=== PATIENT | female | born 1995 | race Caucasian/White ===

== ENCOUNTER 2017-03-22 19:13 | Emergency (ER) | payer BC ==
[~2017-03-22] VITALS: Ht 172.7 cm; Wt 85.6 kg
[2017-03-22 19:17] VITALS: Ht 172.7 cm; Wt 85.6 kg
[2017-03-22 20:10] VITALS: O2SAT 100
[2017-03-22] MEDS ORDERED: ONDANSETRON INJ 2 MG/ML 2 ML VIAL IV STA ×2 (20:18→23:14)
[2017-03-22] MEDS ORDERED: SODIUM CHLORIDE 0.9% 1000ML 1,000 ML IV STA (20:18)
[2017-03-22 20:28] LABS: BASO % 0.4 %; BASO ABS # 0.03 K/uL (0-0.2); EOS % 2.8 %; EOS ABS # 0.23 K/uL (0-0.5); HEMATOCRIT 45.3 % (37-47); HEMOGLOBIN 15.3 g/dL (12.0-16.0); IG# 0.01 K/uL (0.00-0.02); LYMPH ABS # 2.42 K/uL (1.2-3.4); MEAN CELL VOLUME 87.6 fL (80-100); MEAN CORPUSCULAR HEMOGLOBIN 29.6 pg (25-34); MEAN CORPUSCULAR HGB CONC 33.8 g/dl (32-36); MEAN PLATELET VOLUME 10.4 fL (7.4-10.4); MONO % 8.9 %; MONO ABS # 0.74 K/uL (0.11-0.59); NEUT % 58.8 %; NEUT ABS # 4.92 K/uL (1.4-6.5); PLATELET COUNT 236 K/uL (130-400); RED CELL DISTRIBUTION WIDTH CV 13.9 % (11.5-14.5); RED CELL DISTRIBUTION WIDTH SD 44.7 fL (36.4-46.3); WHITE BLOOD COUNT 8.35 K/uL (4.8-10.8)
[2017-03-22] MEDS ORDERED: HYDROmorphone INJ 0.5 MG/0.5 ML SYR IV PRN (20:30)
[2017-03-22] MEDS ORDERED: OPTIRAY 320 IV PRN (20:30)
[2017-03-22 20:44] LABS: ALBUMIN 4.5 gm/dl (3.4-5.0); CALCIUM 9.8 mg/dl (8.5-10.1); CREATININE 0.97 mg/dl (0.60-1.20); POTASSIUM 3.8 mmol/L (3.5-5.1)
[2017-03-22 20:47] LABS: TOTAL PROTEIN 7.8 gm/dl (6.4-8.2)
[2017-03-22] MEDS ORDERED: EFF75 PO (20:55)
[2017-03-22] MEDS ORDERED: LAMO150T PO (20:55)
[2017-03-22] MEDS ORDERED: SERT-234 PO (20:55)
--- NOTE | 2017-03-22 22:27 | DIAGNOSTIC IMAGING REPORT ---
ABDOMEN AND PELVIS CT WITH IV CONTRAST CT DOSE: 537.87 mGy.cm HISTORY: Right lower quadrant abdominal pain. TECHNIQUE: Multiaxial CT images of the abdomen and pelvis were performed following the use of intravenous contrast. A dose lowering technique was utilized adhering to the principles of ALARA. COMPARISON STUDY: None. FINDINGS: The lung bases are clear. No fractures within the visualized osseous structures. The liver, gallbladder, pancreas, adrenal glands, and kidneys are unremarkable. The spleen is mildly enlarged measuring 13 cm in length. No retroperitoneal lymphadenopathy. Bladder is not well-distended and therefore not well evaluated. The intrauterine device appears be in good position. Normal ovaries. The appendix is not clearly visualized. There are no inflammatory changes within the right lower quadrant. IMPRESSION: 1. No bowel wall thickening or obstruction. 2. Mild splenomegaly. 3. The appendix is not clearly visualized. There are no inflammatory changes seen within the right lower quadrant. However, if there is clinical concern for acute appendicitis then repeat CT with oral contrast is recommended for further evaluation. Electronically signed by: Gerardo Harrell M.D. 03/22/2017 10:26 PM Dictated Date/Time: 03/22/2017 10:17 PM
--- NOTE | 2017-03-23 01:01 | EMERGENCY ROOM VISIT NOTE ---
History Report prepared by Dodie: Magda Payne Under the Supervision of: Dr. Rashard Rees M.D. First contact with patient: 20:05 Chief Complaint: ABDOMINAL PAIN Stated Complaint: NAUSEA, LOWER RT ABD PAIN, LIGHT HEADED Nursing Triage Summary: low abd pain and n/v since last night History of Present Illness The patient is a 22 year old female who presents to the Emergency Room with complaints of constant RLQ abdominal pain beginning yesterday. The patient states that she has been having lower right abdominal pain since yesterday and she notes that she has never had this before. She reports that her pain is worsened with movement. She complains of nausea, vomiting, and lightheadedness. The patient states that she ate a normal dinner tonight that worsened her nausea. She states that she has an IUD and her last period was over 1 year ago. Pt denies LOC, headache, fevers, chills, diaphoresis, visual changes, neck pain , chest pain, breathing difficulties, back pain, melena, hematochezia, urinary symptoms, numbness, weakness, lymphadenopathy, rash, or other complaints. She rates her pain as a 7/10 in severity. Source of History: patient Onset: yesterday Position: abdomen (RLQ) Symptom Intensity: 7/10 Timing: constant Modifying Factors (Worsening): movement Associated Symptoms: + nausea, + vomiting Review of Systems See HPI for pertinent positives and negatives. A total of ten systems were reviewed and were otherwise negative. Past Medical & Surgical Medical Problems: (1) Depression Family History No pertinent family history stated. Social History Smoking Status: Current Some Day Smoker Marital Status: single Housing Status: lives with roommate Occupation Status: [employer] student Current/Historical Medications Scheduled Lamotrigine (Lamictal), 150 MG PO DAILY Sertraline (Zoloft), 100 MG PO DAILY Venlafaxine Hcl (Effexor), 75 MG PO DAILY Allergies Coded Allergies: No Known Allergies (Unverified , 03/22/17) Physical Exam Vital Signs Date Time Temp Pulse Resp B/P (MAP) Pulse Ox O2 Delivery O2 Flow Rate FiO2 03/22/17 23:50 74 18 130/74 99 Room Air 03/22/17 21:43 66 20 121/66 99 Room Air 03/22/17 20:51 60 18 138/98 100 Room Air 03/22/17 20:10 100 Room Air 03/22/17 19:17 36.4 55 18 159/67 100 Room Air Physical Exam GENERAL: Awake, alert, well-appearing, in no distress HENT: Normocephalic, atraumatic. Oropharynx unremarkable. EYES: Normal conjunctiva. Sclera non-icteric. NECK: Supple. No nuchal rigidity. FROM. No JVD. RESPIRATORY: Clear to auscultation. CARDIAC: Regular rate, normal rhythm. Extremities warm and well perfused. Pulses equal. ABDOMEN: Soft, non-distended. RLQ abdominal tenderness, mild guarding mild rebound. No masses. RECTAL: Deferred. MUSCULOSKELETAL: Chest examination reveals no tenderness. The back is symmetrical on inspection without obvious abnormality. Mild right flank tenderness. No joint edema. LOWER EXTREMITIES: Calves are equal size bilaterally and non-tender. No edema. No discoloration. NEURO: Normal sensorium. No sensory or motor deficits noted. SKIN: No rash or jaundice noted. Medical Decision & Procedures ER Provider Diagnostic Interpretation: Radiology results as stated below per my review and radiologist interpretation: ABDOMEN AND PELVIS CT WITH IV CONTRAST FINDINGS: The lung bases are clear. No fractures within the visualized osseous structures. The liver, gallbladder, pancreas, adrenal glands, and kidneys are unremarkable. The spleen is mildly enlarged measuring 13 cm in length. No retroperitoneal lymphadenopathy. Bladder is not well-distended and therefore not well evaluated. The intrauterine device appears be in good position. Normal ovaries. The appendix is not clearly visualized. There are no inflammatory changes within the right lower quadrant. IMPRESSION: 1. No bowel wall thickening or obstruction. 2. Mild splenomegaly. 3. The appendix is not clearly visualized. There are no inflammatory changes seen within the right lower quadrant. However, if there is clinical concern for acute appendicitis then repeat CT with oral contrast is recommended for further evaluation. Electronically signed by: Gerardo Harrell M.D. 03/22/2017 10:26 PM Dictated Date/Time: 03/22/2017 10:17 PM Laboratory Results 03/22/17 20:18 Red Blood Count 5.17, Mean Corpuscular Volume 87.6, Mean Corpuscular Hemoglobin 29.6, Mean Corpuscular Hemoglobin Concent 33.8, Mean Platelet Volume 10.4, Neutrophils (%) (Auto) 58.8, Lymphocytes (%) (Auto) 29.0, Monocytes (%) (Auto) 8.9, Eosinophils (%) (Auto) 2.8, Basophils (%) (Auto) 0.4, Neutrophils # (Auto) 4.92, Lymphocytes # (Auto) 2.42, Monocytes # (Auto) 0.74, Eosinophils # (Auto) 0.23, Basophils # (Auto) 0.03 03/22/17 20:18 Test 03/22/17 20:18 03/22/17 21:20 White Blood Count 8.35 K/uL (4.8-10.8) Red Blood Count 5.17 M/uL (4.2-5.4) Hemoglobin 15.3 g/dL (12.0-16.0) Hematocrit 45.3 % (37-47) Mean Corpuscular Volume 87.6 fL (80-100) Mean Corpuscular Hemoglobin 29.6 pg (25-34) Mean Corpuscular Hemoglobin Concent 33.8 g/dl (32-36) Platelet Count 236 K/uL (130-400) Mean Platelet Volume 10.4 fL (7.4-10.4) Neutrophils (%) (Auto) 58.8 % Lymphocytes (%) (Auto) 29.0 % Monocytes (%) (Auto) 8.9 % Eosinophils (%) (Auto) 2.8 % Basophils (%) (Auto) 0.4 % Neutrophils # (Auto) 4.92 K/uL (1.4-6.5) Lymphocytes # (Auto) 2.42 K/uL (1.2-3.4) Monocytes # (Auto) 0.74 K/uL (0.11-0.59) Eosinophils # (Auto) 0.23 K/uL (0-0.5) Basophils # (Auto) 0.03 K/uL (0-0.2) RDW Standard Deviation 44.7 fL (36.4-46.3) RDW Coefficient of Variation 13.9 % (11.5-14.5) Immature Granulocyte % (Auto) 0.1 % Immature Granulocyte # (Auto) 0.01 K/uL (0.00-0.02) Anion Gap 8.0 mmol/L (3-11) Est Creatinine Clear Calc Drug Dose 106.0 ml/min Estimated GFR () 97.4 Estimated GFR (Non- 84.1 BUN/Creatinine Ratio 10.9 (10-20) Calcium Level 9.8 mg/dl (8.5-10.1) Total Bilirubin 0.4 mg/dl (0.2-1) Direct Bilirubin 0.1 mg/dl (0-0.2) Aspartate Amino Transf (AST/SGOT) 25 U/L (15-37) Alanine Aminotransferase (ALT/SGPT) 42 U/L (12-78) Alkaline Phosphatase 53 U/L (45-117) Total Protein 7.8 gm/dl (6.4-8.2) Albumin 4.5 gm/dl (3.4-5.0) Lipase 196 U/L (73-393) Urine Color YELLOW Urine Appearance CLOUDY (CLEAR) Urine pH >= 9.0 (4.5-7.5) Urine Specific [place] 1.025 (1.000-1.030) Urine Protein NEG (NEG) Urine Glucose (UA) NEG (NEG) Urine Ketones TRACE (NEG) Urine Occult Blood NEG (NEG) Urine Nitrite NEG (NEG) Urine Bilirubin NEG (NEG) Urine Urobilinogen NEG (NEG) Urine Leukocyte Esterase NEG (NEG) Urine WBC (Auto) 1-5 /hpf (0-5) Urine RBC (Auto) 5-10 /hpf (0-4) Urine Hyaline Casts (Auto) 1-5 /lpf (0-5) Urine Epithelial Cells (Auto) >30 /lpf (0-5) Urine Bacteria (Auto) 2+ (NEG) Urine Test NEG (NEG) Laboratory results reviewed by me Medications Administered Medications (Trade) Dose Ordered Sig/Antonio Route Start Time Stop Time Status Last Admin Dose Admin Sodium Chloride 1,000 ml @ 999 mls/hr Q1H1M STAT IV 03/22/17 20:18 03/22/17 21:18 DC 03/22/17 20:46 999 MLS/HR Hydromorphone HCl (Dilaudid Inj) 0.5 mg Q15M PRN IV 03/22/17 20:30 04/05/17 20:29 03/22/17 20:46 0.5 MG Ondansetron HCl (Zofran Inj) 4 mg NOW STAT IV 03/22/17 20:18 03/22/17 20:20 DC 03/22/17 20:46 4 MG Ondansetron HCl (Zofran Inj) 4 mg NOW STAT IV 03/22/17 23:14 03/22/17 23:15 DC 03/22/17 23:57 4 MG ED Course 2004: The patient was evaluated in room A12. A complete history and physical exam was performed. 2018: Zofran Inj 4mg IV, Sodium Chloride 1000 ml @ 999 mls/hr IV. 2029: Dilaudid Inj 0.5mg PRN IV pain. 2314: Zofran Inj 4mg IV. 2328: Improved RLQ symptoms but moderate tenderness in the RUQ. 0120: Patient reevaluated after ultrasound imaging. She is feeling much better. Pain improved. Ultrasound imaging negative. Conservative management with precautions given regarding appendix and other pathology. Comfortable. Return instructions outlined. Patient discharged in stable condition. Discussed follow-up within 12-24 hours. Medical Decision Triage Nursing notes reviewed and agree them. The patient's history was concerning for abdominal pain. Differential diagnosis: Etiologies such as appendicitis, biliary pathology, viral syndrome, diverticulitis, PUD, UTI, pancreatitis, obstruction, mesenteric ischemia, aortic pathology, infections, inflammatory bowel disease, renal colic, ectopic , ovarian pathology, as well as others were entertained. Physical examination findings: As above. ER treatment provided: Was given hydration with normal saline IV Zofran 2. IV Dilaudid 0.5 mg 1 On reassessment the patient felt better. Diagnostics interpreted by me: The labs revealed an unremarkable CBC and chemistry panel. Urinalysis unremarkable. The patient is not . Imaging studies: CAT scan and ultrasound as above. The patient was evaluated. Initially she had right-sided tenderness on examination. It seemed to be more mid and lower. She was treated as above. On repeat examination she had more tenderness in the right upper quadrant. Her right lower quadrant was nontender. CT imaging could not clearly identify the appendix but no inflammatory changes seen in the right lower quadrant. Given the focusing of pain in the right upper quadrant after the above treatment and ultrasound was performed. She does note having a sibling with gallbladder problems at a very young age. Her gallbladder ultrasound was normal. On reevaluation the patient was feeling significantly better. The exact etiology of her symptoms is not obvious at this time. I stressed the need for close outpatient follow-up and the patient felt comfortable. If she worsens she will come back to the Emergency Room sooner. The patient felt very comfortable with the plan. She was given a Zofran home pack in case any the nausea returned. She will use Tylenol and ibuprofen. She will rest. A school note was given.I gave my usual and customary discussion regarding this issue. By the evaluation outlined above other emergent etiologies such as those listed in the differential, as well as others, were deemed relatively unlikely. The patient was educated about the findings as listed above. All questions were answered and the patient was pleased with the treatment. Return instructions were outlined and the patient was discharged in stable condition. The patient was referred to the Emergency Room or [facility] in 12-24 hours for follow-up for a recheck of the current condition. Medication Reconcilliation Current Medication List: was personally reviewed by me Blood Pressure Screening Patient's blood pressure: Elevated blood pressure Blood pressure disposition: Elevated BP felt to be situational Impression Primary Impression: Right sided abdominal pain Scribe Attestation The scribe's documentation has been prepared under my direction and personally reviewed by me in its entirety. I confirm that the note above accurately reflects all work, treatment, procedures, and medical decision making performed by me. Departure Information Dispostion Home / Self-Care Referrals No Doctor, Assigned (PCP) Patient Instructions My [facility] Additional Instructions ABDOMINAL PAIN INSTRUCTIONS: DO NOT drive, drink alcohol, operate machinery, or perform dangerous activities today. You were given medications in the ER that can affect your ability to safely function or operate a vehicle. Ibuprofen(Motrin, Advil) may be used for fever or pain. Use 600mg every six hours as needed. Take with food. Avoid using more than 2400mg in a 24 hour period. Do not use 2400mg per day for more than three consecutive days without physician direction. Prolonged inappropriate use can lead to stomach upset or ulcers. (AND/OR) Acetaminophen(Tylenol) may be used for fever or pain. Use 1000mg every six hours as needed. Avoid using more than 4000mg in a 24 hour period. Zofran 4 mg oral dissolving tablets: take one tablet and allow it to melt in your mouth every 4 hours as needed for nausea. Rest and drink plenty of fluids as tolerated. Slow sips of water or sports drinks are recommended instead of large amounts all at once. Continue current medications. Once your stomach is settled start with a clear liquid diet (jello, soup broth, etc.) and then advance as tolerated. You should avoid full, heavy meals for about 24 hrs from the time your symptoms resolved. Return to the emergency department or be reevaluated at [facility] in 12-24 hours for a recheck of your abdominal pain. Return to the ER immediately for worsening or persistent abdominal pain, vomiting, fevers, chest pains, difficulty breathing, black or bloody stools, worsening of your condition, or as needed.
[2017-03-23] MEDS ORDERED: ONDANSETRON HOME PACK 4MG OD TAB PO ONE (01:30)
[2017-03-23 01:57] VITALS: BP 106/73; PULSE 48; TEMP 36.4; O2SAT 98
--- NOTE | 2017-03-23 07:08 | DIAGNOSTIC IMAGING REPORT ---
ULTRASOUND RIGHT UPPER QUADRANT ABDOMEN CLINICAL HISTORY: Right upper quadrant abdominal pain. COMPARISON STUDY: Abdominal CT dated 03/22/2017. TECHNIQUE: Real-time, grayscale, and color flow sonography of the right upper quadrant of the abdomen was performed. Images are reviewed in the transverse and longitudinal planes. FINDINGS: Liver: The liver is normal in size and echotexture. There is no intrahepatic biliary ductal dilatation. The main portal vein is patent. Gallbladder: The gallbladder is normal in appearance. No gallstones are identified. There is no gallbladder wall thickening or pericholecystic fluid. A sonographic Correa's sign is reportedly absent. The common bile duct measures up to 0.3 cm in diameter. Pancreas: Visualized portions of the pancreatic head and body are normal in appearance. The splenic vein is patent. Right kidney: Survey images of the right kidney demonstrate normal size and echotexture. There is no hydronephrosis. Ascites: None. IMPRESSION: Unremarkable sonographic assessment of the right upper quadrant. No gallstones are identified. Electronically signed by: Melo Parisi M.D. 03/23/2017 7:06 AM Dictated Date/Time: 03/23/2017 7:06 AM
== END 2017-03-23 01:58 | disposition home or self-care (01) ==
LOC: C.EDB 19:14 → C.EDA 03-23 01:58
DX: R10.31 Right lower quadrant pain (principal); R11.2 Nausea with vomiting, unspecified; R42 Dizziness and giddiness; F32.9 Major depressive disorder, single episode, unspecified; Z79.899 Other long term (current) drug therapy; Z97.5 Presence of (intrauterine) contraceptive device; F17.200 Nicotine dependence, unspecified, uncomplicated

== ENCOUNTER 2018-06-23 01:10 | Inpatient (IN) ==
[2018-06-23 02:11] LABS: Basophils # (auto) 0.02 K/uL (0-0.2); Basophils % (auto) 0.3 %; Eosinophils % (auto) 1.6 %; Hematocrit (blood only) 36.5 % (37-47); Hemoglobin 12.7 g/dL (12.0-16.0); Immature Granulocytes # (auto) 0.02 K/uL (0.00-0.02); Immature Granulocytes % (auto) 0.3 %; Lymphocytes % (auto) 19.4 %; Mean Corpuscular Hgb Conc 34.8 g/dL (32-36); Mean Corpuscular Volume 88.2 fL (80-100); Mean Platelet Volume 9.9 fL (7.4-10.4); Monocytes % (auto) 8.1 %; Neutrophils # (auto) 4.35 K/uL (1.4-6.5); Neutrophils % (auto) 70.3 %; Platelet Count 180 K/uL (130-400); RDW Coefficient of Variation 12.8 % (11.5-14.5); Red Blood Count 4.14 M/uL (4.2-5.4); White Blood Count 6.19 K/uL (4.8-10.8)
[2018-06-23 02:21] LABS: Pregnancy Test, Urine Negative (Negative)
[2018-06-23 02:23] LABS: Appearance Urine Clear (Clear); Bacteria Urine Automated Negative (Negative); Bilirubin Urine Negative (Negative); Blood Urine Negative (Negative); Cast Urine Automated 0 /lpf (0-5); Color Urine Yellow; Epithelial Cell Urine Auto >30 /lpf (0-5); Glucose Urine UA Negative (Negative); Ketones Urine Negative (Negative); Leukocyte Esterase Urine Trace (Negative); Nitrite Urine Negative (Negative); Protein Urine Negative (Negative); RBC Urine Automated 0-4 /hpf (0-4); Specific Gravity Urine 1.026 (1.000-1.030); Urobilinogen Urine Negative (Negative)
[2018-06-23 02:30] LABS: Albumin Level 3.5 gm/dl (3.4-5.0); BUN Creatinine Ratio 20.5 (10-20); Calcium 8.5 mg/dl (8.5-10.1); Creatinine Clr Calc Pharmacy 151.3 ml/min; Est GFR (African American) 147.1; Est GFR (Non-African American) 126.9; Potassium 3.8 mmol/L (3.5-5.1)
[2018-06-23 02:33] LABS: Acetaminophen < 2 ug/ml (10-30); Salicylate < 1.7 mg/dl (2.8-20)
[2018-06-23 02:40] LABS: Albumin Globulin Ratio 1.2 (0.9-2); Bilirubin,Total 0.1 mg/dl (0.2-1); Total Protein 6.5 gm/dl (6.4-8.2)
[2018-06-23 02:46] LABS: Amphetamines+Metham, Urine Neg (Neg); Barbiturates, Urine Neg (Neg); Benzodiazepine, Urine Neg (Neg); Cocaine, Urine Neg (Neg); MDMA (Ecstacy), Urine Neg (Neg); Methadone, Urine Neg (Neg); Opiate, Urine Neg (Neg); Phencyclidine, Urine Neg (Neg)
[2018-06-23] MEDS ORDERED: ACETAMINOPHEN 325 MG TAB PO PRN (03:59)
[2018-06-23] MEDS ORDERED: MAGNESIUM HYDROXIDE SUSP 30 ML UDC PO PRN (03:59)
[2018-06-23] MEDS ORDERED: ALUMINUM/MAGNESIUM SUSP 30 ML UDC PO PRN (03:59)
[2018-06-23] MEDS ORDERED: SODIUM CHLORIDE 0.65% NA SOLN 45 ML (OCEAN) PRN (03:59)
[2018-06-23] MEDS ORDERED: BISMUTH SUBSALICYLATE PER ML OMNICELL CHARGE PO PRN (03:59)
--- NOTE | 2018-06-23 05:47 | Emergency Department Note ---
Entered by Ector Mckenzie acting as a scribe for Johnny Edwards MD ED Provider Note Name: Denise Glez Age: 23 Arrives Via: Police Informant: Self & 302 Petition CC: Mental Health Evaluation - suicidal thoughts HPI: 23 y/o female arrives for a mental health evaluation of worsening suicidal thoughts beginning a few days ago. The patient states a friend was concerned about her. She reports a mental health history of bipolar disorder and an eating disorder. The patient notes she was never 302'd before. She states she was hospitalized for her eating disorder in [place] in high school, and she has not been hospitalized since. The patient reports she is a [employer] at [employer]. She notes it is final week and she recently had a break up. The patient states her psychiatrist is in [place], and they text a lot. She reports she has had intruding thoughts of suicide passing through her head, and she denies the intent to kill herself. The patient notes she is doing decently on her exams. She states she has not tried anything to kill herself, and she has a history of cutting. The patient reports she is currently on Lamotrigine, Zoloft, and control. 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 The patient states she drank a glass of wine today, and she moderately drinks. She reports she sometimes smokes marijuana. The patient notes she has a family history of bipolar disorder. She states her parents do not know she is here. The patient denies being physical or verbally abused, a history of HTN, a history of thyroid problems, and the chance of . The patient's 302 petition states the following: on June 19 the patient wanted to hurt herself, on June 21 the patient reported I am "so fucking lonely", and on June 22 she noted tomorrow is her last day and she cannot stay here anymore - she messaged her friend and said she has a plan. ROS: See above HPI for pertinent positives & negatives. A total of 10 systems re viewed and were otherwise negative. Past Medical History: Bipolar disorder, eating disorder Past Surgical History: adenoidectomy and tonsillectomy Family History: Bipolar disorder Social History: Moderate alcohol use. Marijuana use. Home Medications: Lamotrigine, Zoloft Allergies NKDA Physical: Vitals: BP 146/98, Pulse 87, Resp 16, Temp 98.6 F, O2Sat 100 Exam: GENERAL: Patient is well appearing and in no acute distress. EYES: No scleral icterus, unremarkable pupils. ENT: Mucous membranes moist, no nasal congestion. NECK: No masses appreciated, no meningismus, trachea is midline. RESPIRATORY: No dyspnea. Clear to auscultation and equal bilaterally. No wheeze, no rhonchi. CARDIOVASCULAR: Regular rate and rhythm. No murmurs, rubs, gallops appreciated. GASTROINTESTINAL: Abdomen soft, non-tender, no peritonitis. Bowel sounds positive. No masses appreciated. BACK: No midline tenderness, no CVA tenderness EXTREMITIES: Normal motion all extremities, no cyanosis, no edema. NEUROLOGIC: Alert and oriented, no acute motor or sensory deficits, no focal weakness, cranial nerves grossly intact. SKIN: No rash, no jaundice, no diaphoresis. PSYCH: Admits depression and vague suicidal thoughts. ED Course: Prior Medical Record, Triage/Nursing Notes, Medications, Allergies reviewed by Me Vital Signs: reviewed and remarkable for wnl Labs: Reviewed and remarkable for normal mental health clearance Interventions: none Imaging: none EKG: none Consults: [address] [place] [address] accepts to their facility Reassessments/Times: 0130: The patient was evaluated in room A05. A complete history and physical exam was performed. 0343: [address] [place] [address] is evaluating the patient. 0410: The patient was accepted to [address] [place] [address] and signed the 201 statement. I rejected the 302 petition. Blood pressure: Normal. No Referral necessary Disposition: [address] [place] [address] Acceptance Differentials: Mood Disorder, Overdose, Infectious, Electrolyte Abnormality, Cardiac, Hepatic, Endocrine, Toxicologic, Neurologic, amongst other pathologies Entertained. Medical Decision Makin yr old female with history of depression who clearly on arrival is minimalizing what is going on. Medically clear and cooperative. After discussion with mental health case management patient willing for inpatient treatment for depression and suicidal ideation. I feel this is optimal and given her willingness to sign self in I feel it appropriate to reject 302. Accepted to [address] [place] [address] for further management. Impression: Depression Suicidal ideation Johnny Edwards MD The scribe's documentation has been prepared under my direction and personally reviewed by me in its entirety. I confirm that the note above accurately reflects all work, treatment, procedures, and medical decision making performed by me. Impression & Plan Depression, Suicidal ideation Past Med/Surg History Medical History Eating disorder (Resolved) Bipolar disorder (Chronic) Depression (Chronic) Surgical History S/P tonsillectomy (Resolved) H/O adenoidectomy (Resolved) Family History Other Bipolar disorder Social History Preferred Language: Irish Feels Safe at Home: Yes Smoking Status: Never smoker Results & Data Vital Signs Vital Signs - 24 hr 06/23/18 01:14 06/23/18 04:18 Temperature 37.0 C Temperature Source Oral Sepsis Action Taken by Nursing No Action Required Pulse Rate 87 87 Respiratory Rate 16 18 Respiratory Effort / Characteristics Non-Labored Spontaneous Respiratory Depth Normal Blood Pressure 146/98 H 116/66 Blood Pressure Mean 114 Pulse Oximetry 100 98 Oxygen Delivery Method Room Air Room Air Home Medications Current Medication List: was personally reviewed by me Laboratory Data Attestation: I reviewed the patient's lab results. Result diagrams: 06/23/18 01:51 06/23/18 01:51 Lab Results 06/23/18 06/23/18 06/23/18 Range/Units 01:21 01:21 01:21 WBC (4.8-10.8) K/uL RBC (4.2-5.4) M/uL Hgb (12.0-16.0) g/dL Hct (37-47) % MCV (80-100) fL MCH (25-34) pg MCHC (32-36) g/dL RDW Std Deviation (36.4-46.3) fL RDW Coeff of Gladys (11.5-14.5) % Plt Count (130-400) K/uL MPV (7.4-10.4) fL Immature Gran % (Auto) % Neut % (Auto) % Lymph % (Auto) % [place] % (Auto) % Eos % (Auto) % Baso % (Auto) % Immature Gran # (Auto) (0.00-0.02) K/uL Neut # (Auto) (1.4-6.5) K/uL Lymph # (Auto) (1.2-3.4) K/uL [place] # (Auto) (0.11-0.59) K/uL Eos # (Auto) (0-0.5) K/uL Baso # (Auto) (0-0.2) K/uL Sodium (136-145) mmol/L Potassium (3.5-5.1) mmol/L Chloride (98-107) mmol/L Carbon Dioxide (21-32) mmol/L Anion Gap (3-11) BUN (7-18) mg/dl Creatinine (0.6-1.2) mg/dl Est Cr Clr Drug Dosing ml/min Est GFR ( Amer) Est GFR (Non-Af Amer) BUN/Creatinine Ratio (10-20) Glucose (70-99) mg/dl Calcium (8.5-10.1) mg/dl Total Bilirubin (0.2-1) mg/dl AST (15-37) U/L ALT (12-78) U/L Alkaline Phosphatase (45-117) U/L Total Protein (6.4-8.2) gm/dl Albumin (3.4-5.0) gm/dl Globulin (2.5-4.0) gm/dl Albumin/Globulin Ratio (0.9-2) TSH (0.300-4.500) uIu/ml Urine Color Yellow Urine Appearance Clear (Clear) Urine pH 6.0 (4.5-7.5) Ur Specific [place] 1.026 (1.000-1.030) Urine Protein Negative (Negative) Urine Glucose (UA) Negative (Negative) Urine Ketones Negative (Negative) Urine Blood Negative (Negative) Urine Nitrite Negative (Negative) Urine Bilirubin Negative (Negative) Urine Urobilinogen Negative (Negative) Ur Leukocyte Esterase Trace H (Negative) Urine WBC (Auto) 1-5 (0-5) /hpf Urine RBC (Auto) 0-4 (0-4) /hpf U Hyaline Cast (Auto) 0 (0-5) /lpf U Epithel Cells (Auto) >30 H (0-5) /lpf Urine Bacteria (Auto) Negative (Negative) Urine Test Negative (Negative) Salicylates (2.8-20) mg/dl Urine Opiates Screen Neg (Neg) Ur Methadone, Qual Neg (Neg) Acetaminophen (10-30) ug/ml Urine Barbiturates Neg (Neg) Ur Phencyclidine (PCP) Neg (Neg) U Amphetamin/Meth Scrn Neg (Neg) MDMA (Ecstasy) Screen Neg (Neg) U Benzodiazepines Scrn Neg (Neg) Ur Cocaine Metabolite Neg (Neg) U Marijuana (THC) Screen Neg (Neg) Ethyl Alcohol mg/dL (0-3) mg/dl 06/23/18 06/23/18 06/23/18 Range/Units 01:51 01:51 01:51 WBC 6.19 (4.8-10.8) K/uL RBC 4.14 L (4.2-5.4) M/uL Hgb 12.7 (12.0-16.0) g/dL Hct 36.5 L (37-47) % MCV 88.2 (80-100) fL MCH 30.7 (25-34) pg MCHC 34.8 (32-36) g/dL RDW Std Deviation 41.0 (36.4-46.3) fL RDW Coeff of Gladys 12.8 (11.5-14.5) % Plt Count 180 (130-400) K/uL MPV 9.9 (7.4-10.4) fL Immature Gran % (Auto) 0.3 % Neut % (Auto) 70.3 % Lymph % (Auto) 19.4 % [place] % (Auto) 8.1 % Eos % (Auto) 1.6 % Baso % (Auto) 0.3 % Immature Gran # (Auto) 0.02 (0.00-0.02) K/uL Neut # (Auto) 4.35 (1.4-6.5) K/uL Lymph # (Auto) 1.20 (1.2-3.4) K/uL [place] # (Auto) 0.50 (0.11-0.59) K/uL Eos # (Auto) 0.10 (0-0.5) K/uL Baso # (Auto) 0.02 (0-0.2) K/uL Sodium 137 (136-145) mmol/L Potassium 3.8 (3.5-5.1) mmol/L Chloride 106 (98-107) mmol/L Carbon Dioxide 29 (21-32) mmol/L Anion Gap 2.0 L (3-11) BUN 13 (7-18) mg/dl Creatinine 0.65 (0.6-1.2) mg/dl Est Cr Clr Drug Dosing 151.3 ml/min Est GFR ( Amer) 147.1 Est GFR (Non-Af Amer) 126.9 BUN/Creatinine Ratio 20.5 H (10-20) Glucose 105 H (70-99) mg/dl Calcium 8.5 (8.5-10.1) mg/dl Total Bilirubin 0.1 L (0.2-1) mg/dl AST 14 L (15-37) U/L ALT 29 (12-78) U/L Alkaline Phosphatase 44 L (45-117) U/L Total Protein 6.5 (6.4-8.2) gm/dl Albumin 3.5 (3.4-5.0) gm/dl Globulin 3.0 (2.5-4.0) gm/dl Albumin/Globulin Ratio 1.2 (0.9-2) TSH 1.630 (0.300-4.500) uIu/ml Urine Color Urine Appearance (Clear) Urine pH (4.5-7.5) Ur Specific [place] (1.000-1.030) Urine Protein (Negative) Urine Glucose (UA) (Negative) Urine Ketones (Negative) Urine Blood (Negative) Urine Nitrite (Negative) Urine Bilirubin (Negative) Urine Urobilinogen (Negative) Ur Leukocyte Esterase (Negative) Urine WBC (Auto) (0-5) /hpf Urine RBC (Auto) (0-4) /hpf U Hyaline Cast (Auto) (0-5) /lpf U Epithel Cells (Auto) (0-5) /lpf Urine Bacteria (Auto) (Negative) Urine Test (Negative) Salicylates < 1.7 L (2.8-20) mg/dl Urine Opiates Screen (Neg) Ur Methadone, Qual (Neg) Acetaminophen < 2 L (10-30) ug/ml Urine Barbiturates (Neg) Ur Phencyclidine (PCP) (Neg) U Amphetamin/Meth Scrn (Neg) MDMA (Ecstasy) Screen (Neg) U Benzodiazepines Scrn (Neg) Ur Cocaine Metabolite (Neg) U Marijuana (THC) Screen (Neg) Ethyl Alcohol mg/dL (0-3) mg/dl 05/01/19 Range/Units 01:51 WBC (4.8-10.8) K/uL RBC (4.2-5.4) M/uL Hgb (12.0-16.0) g/dL Hct (37-47) % MCV (80-100) fL MCH (25-34) pg MCHC (32-36) g/dL RDW Std Deviation (36.4-46.3) fL RDW Coeff of Gladys (11.5-14.5) % Plt Count (130-400) K/uL MPV (7.4-10.4) fL Immature Gran % (Auto) % Neut % (Auto) % Lymph % (Auto) % [place] % (Auto) % Eos % (Auto) % Baso % (Auto) % Immature Gran # (Auto) (0.00-0.02) K/uL Neut # (Auto) (1.4-6.5) K/uL Lymph # (Auto) (1.2-3.4) K/uL [place] # (Auto) (0.11-0.59) K/uL Eos # (Auto) (0-0.5) K/uL Baso # (Auto) (0-0.2) K/uL Sodium (136-145) mmol/L Potassium (3.5-5.1) mmol/L Chloride (98-107) mmol/L Carbon Dioxide (21-32) mmol/L Anion Gap (3-11) BUN (7-18) mg/dl Creatinine (0.6-1.2) mg/dl Est Cr Clr Drug Dosing ml/min Est GFR ( Amer) Est GFR (Non-Af Amer) BUN/Creatinine Ratio (10-20) Glucose (70-99) mg/dl Calcium (8.5-10.1) mg/dl Total Bilirubin (0.2-1) mg/dl AST (15-37) U/L ALT (12-78) U/L Alkaline Phosphatase (45-117) U/L Total Protein (6.4-8.2) gm/dl Albumin (3.4-5.0) gm/dl Globulin (2.5-4.0) gm/dl Albumin/Globulin Ratio (0.9-2) TSH (0.300-4.500) uIu/ml Urine Color Urine Appearance (Clear) Urine pH (4.5-7.5) Ur Specific [place] (1.000-1.030) Urine Protein (Negative) Urine Glucose (UA) (Negative) Urine Ketones (Negative) Urine Blood (Negative) Urine Nitrite (Negative) Urine Bilirubin (Negative) Urine Urobilinogen (Negative) Ur Leukocyte Esterase (Negative) Urine WBC (Auto) (0-5) /hpf Urine RBC (Auto) (0-4) /hpf U Hyaline Cast (Auto) (0-5) /lpf U Epithel Cells (Auto) (0-5) /lpf Urine Bacteria (Auto) (Negative) Urine Test (Negative) Salicylates (2.8-20) mg/dl Urine Opiates Screen (Neg) Ur Methadone, Qual (Neg) Acetaminophen (10-30) ug/ml Urine Barbiturates (Neg) Ur Phencyclidine (PCP) (Neg) U Amphetamin/Meth Scrn (Neg) MDMA (Ecstasy) Screen (Neg) U Benzodiazepines Scrn (Neg) Ur Cocaine Metabolite (Neg) U Marijuana (THC) Screen (Neg) Ethyl Alcohol mg/dL < 3.0 (0-3) mg/dl Blood Pressure Blood Pressure Findings: Elevated blood pressure Blood Pressure Disposition: further management by hospitalist Discharge Plan Visit Data Chief Complaint: Mental Health Evaluation Stated Complaint: MENTAL HEALTH EVALUATION ED Provider: Johnny Edwards Discharge Problem: Depression, Suicidal ideation Patient Disposition: Transfer Behavioral Health Fac Discharge Instructions Interventions: ED Discharge Assessment Last Done: 06/23/18 04:18 Discharge Problem: Depression Qualifiers: Depression Type: unspecified Qualified Code(s): F32.9 - Major depressive disorder, single episode, unspecified The scribe's documentation has been prepared under my direction and personally reviewed by me in its entirety. I confirm that the note above accurately reflects all work, treatment, procedures, and medical decision making performed by me.
[2018-06-23] MEDS ORDERED: VENLAFAXINE HCL 50 MG TAB PO SCH (09:00)
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
[2018-06-23] MEDS: lamoTRIgine 100 MG TAB PO SCH (21:20)
[2018-06-23] MEDS ORDERED: SERTRALINE HCL 100 MG TABLET PO SCH (22:00)
[2018-06-23] MEDS ORDERED: SERTRALINE HCL 50 MG TABLET PO SCH (22:00)
[2018-06-24] MEDS: VENLAFAXINE HCL XR 150 MG CAPXR PO SCH (09:11)
--- NOTE | 2018-06-24 11:41 | Psychiatric Progress Note ---
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 The patient denies that she had plan or intent to follow through but admits that it is unusual for her to have suicidal thinking. Pt reporting benefit from ongoing cross-taper from sertraline to venlafaxine and is agreeable to tapering sertraline to 25mg this evening. She denies activation following medication adjustments, but will need to continue to monitor. Pt remains unwilling to involve parents in a family meeting, but was encouraged to consider if a roommate or other outpatient support would participate. Awaiting aftercare arrangements with local providers as well. At this time, the patient requires inpatient mental health treatment due to the severity of her symptoms, and the risk for self-harm if discharged. (1) Bipolar disorder: 06/23 - Decrease Zoloft to 50 mg daily - Increase Effexor XR to 150 mg daily - Obtain OP records from provider - FAmily meeting if indicated - Q 15 min checks for safety - Encourage participation in group and individual counseling - Will need to have a local provider - Safety planning - Assist the patient to explore healthy coping strategies. 06/24 - Decrease Zoloft to 25mg tonight, denying any side effects from medication cross-taper - Continue venlafaxine at 150mg - Remains unwilling for family meeting with parents, but will consider inviting roommate - Awaiting aftercare arrangements with local providers Inventory Assets Strengths: Intelligence, willingness to engage in treatment Needs: Healthy coping strategies Risk Factors Assessment Male: No : Yes Do You Have Access To A Gun?: No Health Problems: No Mental Health Diagnoses: Yes Substance Use Disorders: No Previous Attempt: No Family History of Suicide: No Previous Psychiatric Hospitalization: No Smoker: No Protective Factors Assessment : No Responsible for Young Children: No Employed: Yes ([employer]) Good Rapport with Provider: Yes Interval History Identifying Information LETICIA RABAGO is a 23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 She eventually signed in voluntarily. Information is gathered from the patient and considered to be reliable. Chief Complaint "Um. Ok." Review of Systems Notes Constitutional: denied Cardiovascular: denied Respiratory: denied Gastrointestinal: denied Neurological: denied Psychiatric: denies symptoms other than stated above Total of at least 10 systems reviewed, pertinent positives as above and in HPI. Sleep Information Total Hours of Sleep: 7 Sleep Comments: pt with late admission @0421 to the [facility]. pt on q-15 minute checks Meal Information Percent Meal Consumed - Breakfast: 0 Percent Meal Consumed - Lunch: 100 Percent Meal Consumed - Dinner: 100 Subjective Subjective Patient was seen & assessed and interval progress reviewed with Nursing. Staff report the patient has been participating in groups. Has been speaking with her parents over the phone, but remains unwilling to involve them in a family meeting. Pt was seen today to assess progress since admission. She reports feeling pleased with her response to recent medications adjustments, tapering sertraline in favor of venlafaxine increase. Pt states, "the med change helped a lot." She reports, "the energy I was feeling last week was probably the worst, like beyond my normal hypomania." She denies obvious activation from recent medication adjustments, and feels rather "neutral" in regard to mood stability. Pt rates her mood a 6/10 (10=best), stating, "that's where I am when I'm in between moods, that's a good place for me to be." Pt denies SI and other concerns today. She denies side effects from medication adjustments, and is agreeable to further taper of sertraline tonight. Pt denies other needs or concerns at this time. Physical Exam Psychiatric Orientation: alert, oriented x 3 and cooperative Apperance: appropriately dressed and appropriately groomed Eye Contact: good eye contact Motor Behavior: steady gait and station and no abnormal motor movements Speech: normal rate/rhythm/volume of speech Affect: + blunted affect (appearing mildly less depressed) "Um. Ok. 6/10, which is a good place for me." Thought Process: goal directed thought process and clear/coherent thought process Thought Content: reality based without delusions Suicidal Thoughts: denies suicidal thoughts, denies suicidal plan and denies suicidal intent Homicidal Thoughts: denies homicidal thoughts Hallucinations: no auditory hallucinations and no visual hallucinations Cognition: recent memory grossly intact, remote memory grossly intact, attention grossly intact and language grossly intact Estimated Intelligence: consistent with education level Insight: + fair insight Judgement: + fair judgement Vital Signs (Past 24 Hours) Last Vital Signs Temp 36.6 C 05/02/19 07:06 Pulse 63 06/24/18 07:07 Resp 16 06/24/18 07:06 BP 123/86 06/24/18 07:07 Pulse Ox 98 06/23/18 04:18 Results & Data Current Inpatient Medications Current Inpatient Medications: Current Inpatient Medications Acetaminophen (Tylenol) 650 mg PO Q4H PRN PRN Reason: Headache or Minor Fever Stop: 07/23/18 03:58 Al Hydrox/Mg Hydrox/Simethicone (Maalox) 30 ml PO Q4H PRN PRN Reason: GI Upset Stop: 07/23/18 03:58 Bismuth Subsalicylate (Kaopectate) 15 ml PO PRN PRN PRN Reason: Loose Stool Stop: 07/23/18 03:58 Hydroxyzine HCl (Vistaril) 50 mg PO HSZ PRN PRN Reason: Insomnia Stop: 07/23/18 03:58 Hydroxyzine HCl (Vistaril) 25 mg PO Q4H PRN PRN Reason: Anxiety Stop: 07/23/18 03:58 Lamotrigine (Lamictal) 150 mg PO HS COLTON Stop: 07/23/18 21:59 Last Admin: 06/23/18 21:20 Dose: 150 mg Documented by: Magnesium Hydroxide (Milk Of Magnesia) 30 ml PO DAILY PRN PRN Reason: Constipation Stop: 07/23/18 03:58 Sertraline HCl (Zoloft) 50 mg PO HS COLTON Stop: 07/23/18 21:59 Last Admin: 06/23/18 21:20 Dose: 50 mg Documented by: Sodium Chloride (Carver Nasal) 1 - 2 sprays NA PRN PRN PRN Reason: Nasal Dryness/Congestion Stop: 07/23/18 03:58 Venlafaxine HCl (Effexor Extended Release) 150 mg PO DAILY COLTON; Protocol Stop: 07/24/18 08:59 Last Admin: 06/24/18 09:11 Dose: 150 mg Documented by: Post Discharge Appointments Primary Care Physician Name Of Family Doctor: [facility] Primary Care Time of Appointment with PCP: Follow up as needed Provider Appointment Comment: [facility], [place] [address] Therapist Name of Therapist: Karthik Melendez Therapist's Date of Therapist Appointment: 07/01/18 Time of Therapist Appointment: 11:30 a.m. Therapy Appointment Comment: [address] [facility] [address], [place] [address] Cloth Tester Name of Cloth Tester: [employer] [facility] [employer] [facility] Phone Number for Cloth Tester: [phone] Case Management Appointment Comment: [address] [facility] Contact Information Discharge Discharge Address: [address] [place] [address], [place] [address], [place] [address] CPT Code CPT Code 45890
[2018-06-24] MEDS: lamoTRIgine 100 MG TAB PO SCH (21:44)
[2018-06-24] MEDS ORDERED: SERTRALINE HCL 50 MG TABLET PO SCH (22:00)
[2018-06-25] MEDS: VENLAFAXINE HCL XR 150 MG CAPXR PO SCH (08:41)
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
== END 2018-06-25 11:53 | disposition home or self-care (01) | DRG 885 ==
LOC: ED 01:10 → 3S 03:59